=== PATIENT | male | born 1980 | race Caucasian/White ===

== ENCOUNTER 2016-10-23 14:19 | Emergency (ER) | payer OTHER ==
[2016-10-23 14:36] VITALS: BP 123/66
[2016-10-23] MEDS ORDERED: Tetan/Diph/Pertus SYR(Tdap)* 0.5 ML SYR(BOOSTRIX) use SYR IM ONE (14:41)
--- NOTE | 2016-10-23 14:47 | UC ---
Skin Complaint HPI - HPI Summary HPI Summary: Pt reports gettign a puncture wound from a fidel staple in his hardwood floors yesterday. he is not UTD with his tetanus. - History of Current Complaint Chief Complaint: UCLaceration Time Seen by Provider: 10/23/16 14:33 Stated Complaint: FIDEL STAPLE PUNCTURE Hx Obtained From: Patient Onset/Duration: Sudden Onset Skin Exposure Onset/Duration: Days Ago - 1 day Onset Severity: Mild Current Severity: Mild Location: Discrete - left index finger Character: Swelling - slight, Pain, Redness, Raised Aggravating: Touch Associated Signs & Symptoms: Positive: Tenderness Related History: Trauma - staple in wood floor - Allergy/Home Medications Allergies/Adverse Reactions: Allergies Allergy/AdvReac Type Severity Reaction Status Date / Time No Known Allergies Allergy Verified 10/23/16 14:36 Home Medications: Home Medications NK [No Home Medications Reported] 10/23/16 [History Confirmed 10/23/16] Review of Systems Constitutional: Negative Skin: Other - puncture wound, pin head size, on lfet distal index finger lateral aspect Eyes: Negative ENT: Negative Respiratory: Negative Cardiovascular: Negative Gastrointestinal: Negative Genitourinary: Negative Motor: Negative Neurovascular: Negative Musculoskeletal: Negative Neurological: Negative Psychological: Negative All Other Systems Reviewed And Are Negative: Yes PMH/Surg Hx/FS Hx/Imm Hx Previously Healthy: Yes - is not UTD with tetanus Endocrine History Of: Denies: Diabetes, Thyroid Disease Cardiovascular History Of: Denies: Cardiac Disorders, Hypertension Respiratory History Of: Denies: COPD, Asthma GI/ History Of: Denies: Ulcer - Surgical History Surgical History: None - Family History Known Family History: Positive: Other - positive for FMH for abrasion - Social History Lives: With Family Alcohol Use: None Substance Use Type: None Smoking Status (MU): Never Smoked Tobacco Physical Exam Triage Information Reviewed: Yes Appearance: Well-Appearing Vital Signs: Initial Vital Signs Temp 98.7 F 10/23/16 14:31 Pulse 93 10/23/16 14:31 Resp 14 10/23/16 14:31 BP 123/66 10/23/16 14:31 Pulse Ox 96 10/23/16 14:31 Eye Exam: Normal Respiratory Exam: Other Respiratory: Positive: No respiratory distress Musculoskeletal Exam: Normal Neurological Exam: Normal Psychological Exam: Normal Skin Exam: Other - small puncture wound in left distal index finger, mild erythema surrounding area ~ 5mm in diameter Course/Dx - Differential Diagnoses - Skin Complaint Differential Diagnoses: Cellulitis, Other - puncture wound - Diagnoses Provider Diagnoses: puncture wound. tetanus not UTD Discharge - Discharge Plan Condition: Stable Disposition: HOME Patient Education Materials: Puncture Wound (ED) Referrals: [facility] [Outside] Additional Instructions: Please follow up with your PCP or return to clinic as needed.
== END 2016-10-23 15:09 | disposition home or self-care (01) ==
LOC: UCEAST 14:19
DX: S61.231A Puncture wound without foreign body of left index finger without damage to nail, initial encounter (principal); W45.8XXA Other foreign body or object entering through skin, initial encounter; Y92.9 Unspecified place or not applicable
CPT/HCPCS: 90471; 90715; 99201; G0463